=== PATIENT | male | born 1950 | race Caucasian/White ===

== ENCOUNTER 2018-11-07 06:53 | Inpatient (IN) | payer OTHER ==
[~2018-11-07] VITALS: Ht 170.2 cm; Wt 108.9 kg
[2018-11-07] VITALS (9 sets, daily range): BP systolic 108–185; BP diastolic 61–86
[2018-11-07] MEDS ORDERED: ASPIR 8181 MG PO (07:16)
[2018-11-07] MEDS ORDERED: IRON325 PO (07:16)
[2018-11-07] MEDS ORDERED: FISH OIL 1,001000 M2 PO (07:16)
[2018-11-07] MEDS ORDERED: LIPITOR 20 MG T20 M1 PO (07:17)
[2018-11-07] MEDS ORDERED: FIBER THERAPY1368 GM PO (07:17)
[2018-11-07] MEDS ORDERED: TRICOR145 MG PO (07:18)
[2018-11-07] MEDS ORDERED: HYDROXYZINE HCL25 M2 PO (07:18)
[2018-11-07] MEDS ORDERED: PAXIL10 MG PO (07:18)
[2018-11-07] MEDS ORDERED: NEXIUM40 MG PO (07:18)
[2018-11-07] MEDS ORDERED: ALBUTEROL2.5 MG/31 INH (07:19)
[2018-11-07] MEDS ORDERED: AVAPRO 150 MG150 MG PO (07:19)
[2018-11-07] MEDS ORDERED: SPIRIVA INH (07:19)
[2018-11-07] MEDS ORDERED: CPAP MISCELL (07:20)
[2018-11-07] MEDS ORDERED: PROAIR RESPICL90 MCG INH (07:20)
[2018-11-07 07:32] LABS: HEMATOCRIT 48.7 % (42.0-52.0); HEMOGLOBIN 15.7 gm/dL (14.0-18.0); MCH 29.8 pg (26.0-34.0); MCHC 32.4 g/dL (28.0-37.0); MPV 8.8 fl. (7.2-11.1); NUCLEATED RBCS 0 /100WBC; PLATELET COUNT* 339 thou/uL (150-400); RBC 5.29 mil/uL (4.50-6.00); RDW-CV 14.4 % (10.5-14.5); WBC 18.5 thou/uL (4.0-11.0)
[2018-11-07 07:40] LABS: ANION GAP 5 mmol/L (7-16); BUN 19 mg/dL (7-18); CALCIUM 9.1 mg/dL (8.5-10.1); CHLORIDE 99 mmol/L (98-107); CO2 33 mmol/L (21-32); CREATININE 0.9 mg/dL (0.6-1.3); GLUCOSE 123 mg/dL (70-99); INR 1.1; PROTIME 11.5 Seconds (9.20-11.50); SODIUM 137 mmol/L (136-145)
[2018-11-07 07:50] LABS: ALKALINE PHOSPHATASE 50 U/L (46-116); LIPASE 58 U/L (73-393); MAGNESIUM 1.3 mg/dL (1.8-2.4); NT-PRO BRAIN NAT PEPTIDE 357 pg/mL (<300); SGOT 8 U/L (15-37); SGPT 22 U/L (30-65); TOTAL BILIRUBIN 0.7 mg/dL (<0.1-1.0); TOTAL PROTEIN 7.4 g/dL (6.4-8.2); TROPONIN-I LEVEL <0.06 ng/mL (<0.06)
[2018-11-07 08:37] LABS: ABSOLUTE MONOCYTES 0.6 thou/uL (0.0-1.2); ABSOLUTE NEUTROPHILS 15.9 thou/uL (1.6-8.1)
[2018-11-07 08:38] LABS: PLATELET ESTIMATE ADEQUATE
--- NOTE | 2018-11-07 08:50 | NUR ---
ADMIT NOTE - PT ARRIVED TO 2EPPING VIA CART AT THIS TIME. V/S STABLE. FAMILY AT BEDSIDE. DR. LEE AND HERE TO SPEAK WITH PT AND FAMILY ([id number]). PT TAKEN TO PACU FOR EMERGENT SURGERY AT 0952. PT TO BE TRANSFERRED TO ICU AFTER SURGERY. ADMIT NOT COMPLETE D/T INSUFFICENT TIME TO ASK/ASSESS PT.
[2018-11-07 18:18] LABS: BE 1.5 mmol/L (-2 to +3); PCO2 47.1 mmHg (35.0-45.0); PO2 60.9 mmHg (75.0-100.0)
--- NOTE | 2018-11-07 18:19 | NUR ---
PT CARE ASSUMED AFTER TRANSFER FROM [facility] AFTER PERF BOWEL REPAIR. COLOSTOMY TO LLQ. ROSALIO DRAIN TO RLQ. PROVENA WOUND VAC TO MIDLINE INCISION. DRESSING C/D/I. PT WITH HF O2 AT 6L AND NC O2 AT 5L UPON ARRIVAL FROM SURGERY. PT DECREASED TO THE 6L HF NC AND BEGAN DESATTING INTO THE UPPER 70'S LOW 80'S. RESP THERAPY NOTIFIED. PULMONARY PAGED. DR WHIPPLE NOTIFIED OF PT STATUS. ORDERS RECEIVED INCLUDING BIPAP SETTINGS. RESP THERAPY PLACING BIPAP NOW. PT NOW SATTING 99%. PRN PAIN MEDICATION GIVEN PER PT REQUEST. CRITICLE O2 SAT ON ABG OF 88 %. DR WHIPPLE NOTIFIED.
[2018-11-08] VITALS (17 sets, daily range): BP systolic 111–139; BP diastolic 56–71
[2018-11-08 04:28] LABS: ABSOLUTE LYMPHOCYTES 0.5 thou/uL (0.8-5.3); ABSOLUTE MONOCYTES 0.6 thou/uL (0.0-1.2); ABSOLUTE NEUTROPHILS 11.9 thou/uL (1.6-8.1); BASOPHILS 0.1 %; HEMATOCRIT 40.6 % (42.0-52.0); LYMPHOCYTES 3.7 %; MCH 30.6 pg (26.0-34.0); MCHC 32.7 g/dL (28.0-37.0); MCV 93.6 fL (80.0-100.0); MONOCYTES 4.3 %; MPV 8.9 fl. (7.2-11.1); NUCLEATED RBCS 0 /100WBC; POLYS 91.9 %; RBC 4.34 mil/uL (4.50-6.00); RDW-CV 14.7 % (10.5-14.5)
[2018-11-08 04:38] LABS: ALBUMIN 2.2 g/dL (3.4-5.0); CALCIUM 7.8 mg/dL (8.5-10.1); MAGNESIUM 1.8 mg/dL (1.8-2.4); POTASSIUM 4.3 mmol/L (3.5-5.1); TOTAL BILIRUBIN 0.3 mg/dL (<0.1-1.0); TOTAL PROTEIN 6.1 g/dL (6.4-8.2)
[2018-11-08 04:50] LABS: HEMOGLOBIN 13.3 gm/dL (14.0-18.0); PLATELET COUNT* 247 thou/uL (150-400)
[2018-11-08 05:34] LABS: BE -1.9 mmol/L (-2 to +3); PCO2 41.5 mmHg (35.0-45.0); pH 7.367 (7.340-7.450)
[2018-11-08 05:41] LABS: PO2 279.1 mmHg (75.0-100.0)
--- NOTE | 2018-11-08 06:20 | NUR ---
REPORT RECEIVED FROM OFF GOING SHIFT AND CARE ASSUMMED. PT AAOX4, RESP REG AND UNALBORED PT ON BIPAP SETTINGS 14/8, R16, FIO2 80%. PT TOLERATING WELL. ROSALIO DRAIN TO RLQ INTACT AND DRAINING BLOODY DRAINAGE. COLOSTOMY TO LLQ INTACT AND DRAINING BLOODY SECRETIONS. PROVENA WOUND VAC INTACT TO MIDLINE INCISION. ANTOINE INTACT AND PATNET DRAINING ELMA URINE TO BEDSIDE BAG. MONITOR INTACT WITH ALARMS SET. PT HAD A GOOD NIGHT, NO ACUTE CHANGES NOTED DURING SHIFT. CRITICAL ABG PO2 279, PROVIDER NOTIFIED AND NEW ORDER RECEIVED. O2 3L BNC PLACED ON PT. WILL CONTINUE OT MONITOR
--- NOTE | 2018-11-08 07:18 | CON ---
[address] [address] CONSULTATION Name: PREMA MARTIN Room: [address] IN M.R.#: [id number] Admission: 11/07/18 Attend Phys: Prema Way MD Discharge: Date of : 46 Report #: [id number] THIS REPORT FOR: //name// CC: Marnie Medina DO Prema Way DATE OF SERVICE: 11/07/2018 REQUESTING PHYSICIAN: Prema Way MD REASON FOR CONSULTATION: History of chronic obstructive pulmonary disease, sleep apnea and awaited surgery. DISCUSSION: The patient is a 68-year-old man who has a history of underlying COPD. Severity unknown though I suspect it is moderate to severe. He has not been steroid or O2 dependent. He presented to the Emergency Department here at [facility] early this morning. He was having more trouble with his breathing, but also increased abdominal discomfort. O2 saturations were low. He was evaluated in the ED. He was fairly uncomfortable. He was found to have free air. Surgery has been consulted. He was transferred up to telemetry. He was transferred up here, Surgery has seen him. He has also been having increased difficulty with his breathing. Plans are now underway for him to be transferred to the Intensive Care Unit as well as emergent surgery plan for this morning due to of acute abdomen. He quit smoking about 8 years ago. However, he smokes 3 packs of cigarettes per day for over 40 years. He states it has been years since he has had PFTs done. Has seen a wound care specialist, so he cannot tell me who, but was scheduled to follow up in January. Over the last several days, he was having more cough, shortness of breath. He was having some green sputum. At home, he does do Spiriva daily as well as nebulizer treatments with albuterol. He is not on steroids. He does have sleep apnea, he sleeps with CPAP nightly. He was hospitalized for several days in June with a COPD exacerbation that was in [place]. He has never been intubated. He has no prior history of heart disease or thromboembolic disease that he is aware of. PAST MEDICAL HISTORY: Remarkable with COPD and obstructive sleep apnea as noted. REVIEW OF SYSTEMS: ROS was done. No positives as above. Not having vomiting. He complains of constipation. He had taken some medications at home without success. Green sputum. He has been having periods of diaphoresis. Does better breathing when he is able to sit up more, have the head [place] [address] CONSULTATION Name: PREMA MARTIN Room: [address] IN [facility].#: [id number] Admission: 11/07/18 Attend Phys: Prema Way MD Discharge: Date of : 46 Report #: [id number] Denies any vomiting or loss of consciousness. No actual chest pain. No problems with swelling in his lower extremities. PHYSICAL EXAMINATION: GENERAL: The patient is seen in his room just prior to transfer downstairs. Family is at the bedside. His O2 running via nasal cannula. He is able to speak in full sentences, but lengths are short. He is tachypneic. HEENT: Head is normocephalic. Sclerae nonicteric. Mucous membranes are little dry. NECK: Full. HEART: Tones are distant. He is tachycardic. No S3 is heard. LUNGS: Clear breath sounds are markedly diminished. Prolonged expiratory phase. ABDOMEN: Distended, somewhat firm, given his discomfort not easily palpated. EXTREMITIES: No lower extremity edema. SKIN: Warm, but is noted. He is mildly diaphoretic. NEUROLOGIC: He is alert and oriented x 3. LABORATORY AND X-RAY FINDINGS: Arterial blood gases are pending. White blood cell count 18,500, hemoglobin 15.7, hematocrit 48.7 and platelets are normal. Does have a left shift. Chemistry, BUN is 19, creatinine 0.9, bicarbonate 33 and potassium 4.0. Magnesium 1.3, lipase 58, AST 8, magnesium 1.3 and albumin 3.0. IMPRESSION: 1. Chronic obstructive pulmonary disease, baseline probably has moderate to severe chronic obstructive pulmonary disease. Former smoker. Will certainly be at higher risk for perioperative complications. Fortunately, he is no longer a smoker. 2. Obstructive sleep apnea. By history, he has been compliant with the CPAP. 3. Intraabdominal free air. Rule out perforated viscus. Does appear to have an acute abdomen. 4. Obesity. 5. Leukocytosis. 6. Overall appears quite ill. RECOMMENDATIONS: 1. Agree with plans to transfer to ICU pending surgery. 2. Anticipate will need postop ventilatory support. Depending on the findings at the time of surgery, may certainly have a bearing on, quickly he could be weaned. I did discuss with the patient and family. It is not clear how easily he may or may not be weaned. 3. We will continue bronchodilator therapy. Continue scheduled treatments. [address] [address] CONSULTATION Name: PREMA MARTIN Jadon Room: [address] IN M.R.#: [id number] Admission: 11/07/18 Attend Phys: Prema Way MD Discharge: Date of : 46 Report #: [id number] 4. Agree with antibiotics empirically at this time. May have also a component of bronchitis. <ELECTRONICALLY SIGNED> By: Ama Block MD 11/08/18 0718 0936 [id number] Block MD /nt
--- NOTE | 2018-11-08 12:03 | NUR ---
PATIENT IS NOW TELE STATUS
--- NOTE | 2018-11-08 12:50 | NUR ---
PATIENT GOT UP TO CHAIR WITH ONE ASSIST. TOLERATED WELL. SITTING UP IN RECLINER AT THIS TIME. MINIMAL PAIN.
--- NOTE | 2018-11-08 16:04 | NUR ---
REPORT GIVEN TO ALFREDO HENRY. ALL QUESTIONS ANSWERED. BELONGINGS PACKED AND PATIENT AWARE OF TRANSFER. WILL GO BY WHEELCHAIR TO ROOM 228 WITH NURSING STAFF.
--- NOTE | 2018-11-08 20:00 | NUR ---
RECEIVED REPORT AND ASSUMED CARE OF PT, ASSESSMENT COMPLETED. MIDLINE INCISION INTACT WITH WOUND VAC FUNCTIONING. COLOSTOMY NOTED, NO STOOL, SM AMT OF OLD DRAINAGE. O2 ON AT 3L/HFC, NO SOB NOTED. TELEMETRY ON SHOWING SR. WILL CONT TO MONITOR AND ASSIST NEEDED.
[2018-11-09] VITALS: BP 125/61
[2018-11-09 04:00] VITALS: BP 152/85
[2018-11-09 05:06] LABS: HEMATOCRIT 39.5 % (42.0-52.0); MCH 30.7 pg (26.0-34.0); MCHC 32.8 g/dL (28.0-37.0); MCV 93.5 fL (80.0-100.0); MPV 8.5 fl. (7.2-11.1); RBC 4.23 mil/uL (4.50-6.00); RDW-CV 14.7 % (10.5-14.5); WBC 13.1 thou/uL (4.0-11.0)
[2018-11-09 05:20] LABS: CALCIUM 7.7 mg/dL (8.5-10.1); CREATININE 0.8 mg/dL (0.6-1.3); MAGNESIUM 2.2 mg/dL (1.8-2.4); POTASSIUM 3.9 mmol/L (3.5-5.1)
--- NOTE | 2018-11-09 06:30 | NUR ---
SLEPT WELL TONIGHT. TURNING SELF IN BED FOR COMFORT. ROUTINE TORADOL GIVEN AND IV PAIN MED X1 AND EFFECTIVE. ASSESSMENT UNCHANGED. VOIDING WITHOUT DIFFICULTY. TELEMETRY SHOWING SR. HS GOALS OF REST AND SAFETY ACHIEVED. HOURLY ROUNDING OBSERVED.
--- NOTE | 2018-11-09 11:18 | NUR ---
Nutrition: Consult for wound on midline incision. Has wound VAC. RD ordered Naman bid. Pt is on Full liquids. RX: statin, fish oil. Labs: BG 129-148, alb 2.2, prealb 12.9. Wt: 234#. H/o COPD, HILDA, CPAP. GOALS: Naman bid, >75% of meals with good protein intake, tight BG control. Mild risk.
[2018-11-09 12:00] VITALS: BP 158/93
--- NOTE | 2018-11-09 12:00 | NUR ---
MET WITH PT TO DISCUSS HOME SITUATION/DC PLANNING. PT LIVES WITH ON [address] IN [place]. HE IS NORMALLY INDEPENDENT AND ACTIVE. HAS COPD AND IS LIMITED IN HER OWN CARES, NOT ABLE TO ASSIST PT AT DC. FAMILY IS SUPPORTIVE AND CHECKING ON WHILE PT HOSPITALIZED. PT USES CPAP AND NEB, ALSO HAS BACK STIMULAR. HE IS S/P SURGERY AND HAS PREVENA VAC AND NEW OSTOMY. STILL PAINFUL. PT PLANS TO RETURN HOME AT DC. TALKED WITH HIM ABOUT HH AND OSTOMY CARE. EXPLAINED THAT OSTOMY NURSE WILL SEE PRIOR TO DC FOR EDUCATION AND DISCUSS EQUIPMENT. PT AGREEABLE. ALSO DISCUSSED DPOA, PT WOULD LIKE TO DO WHILE HERE BUT NOT TODAY. WILL FOLLOW
--- NOTE | 2018-11-09 14:31 | EKG ---
[place] [address] ELECTROCARDIOGRAM REPORT Name: PREMA MARTIN Room: [address] ADM IN M.R.#: [id number] Admission: 11/07/18 Attend Phys: Prema Way MD Discharge: Date of : 46 Report #: [id number] THIS REPORT FOR: //name// [facility] ED Test Date: 2018-11-07 Test Time: 06:59:41 Pat Name: PREMA MARTIN Department: Room: [facility] Gender: M Biomed Tech: MS : 1950 Requested By: Lars Pickering Order Number: [id number] MD: Patrick Osorio Measurements Intervals Schlater Rate: 117 P: 76 SC: 154 QRS: 55 QRSD: 76 T: 54 QT: 310 QTc: 433 Interpretive Statements Sinus tachycardia Baseline wander in lead(s) I,III,aVR,aVL,aVF No previous ECG available for comparison Electronically Signed On 11-09-2018 14:31:32 CDT by Patrick Osorio [email or web address] <ELECTRONICALLY SIGNED> By: Patrick Osorio MD, [facility] 11/09/18 1431 0659 0659 Patrick Osorio MD, [facility] /EPI
[2018-11-09 16:00] VITALS: BP 128/79
--- NOTE | 2018-11-09 18:00 | NUR ---
ASSUMED PT CARE AT 0700, PT A&O X4, UP WITH STANDBY AND WALKER, VSS, O2 AT 3LPM, CANNON CREWMEMBER TRACING SINUS RHYTHM. LS CLEAR TO DIMINISHED, BS HYPOACTIVE X4, ABD DISTENDED BUT SOFT, MIDLINE INCISION COVERED WITH WOUND VAC, ROSALIO DRAIN TO RIGHT LOWER QUAD DRAINING SEROSANGUINOUS FLUID, PT C/O PAIN AT TIMES, PRN PAIN MEDS ON BOARD, PT TOLERATING WELL. COLOSTOMY IN PLACE, STOMA BEEFY RED WITH MODERATE AMOUNT OF SEROSANGUINOUS DRAINAGE IN BAG. HOURLY ROUNDING COMPLETED.
[2018-11-09 19:50] VITALS: BP 161/85
[2018-11-10] VITALS (7 sets, daily range): BP systolic 148–172; BP diastolic 76–97
[2018-11-10 06:49] LABS: HEMATOCRIT 41.7 % (42.0-52.0); HEMOGLOBIN 13.6 gm/dL (14.0-18.0); MCH 30.4 pg (26.0-34.0); MCHC 32.6 g/dL (28.0-37.0); MCV 93.3 fL (80.0-100.0); MPV 7.9 fl. (7.2-11.1); NUCLEATED RBCS 0 /100WBC; PLATELET COUNT* 279 thou/uL (150-400); RBC 4.47 mil/uL (4.50-6.00); RDW-CV 14.6 % (10.5-14.5); WBC 9.1 thou/uL (4.0-11.0)
[2018-11-10 06:59] LABS: CALCIUM 8.1 mg/dL (8.5-10.1); CREATININE 0.8 mg/dL (0.6-1.3); POTASSIUM 3.8 mmol/L (3.5-5.1)
[2018-11-10 07:49] LABS: ABSOLUTE LYMPHOCYTES 3.2 thou/uL (0.8-5.3); ABSOLUTE MONOCYTES 0.3 thou/uL (0.0-1.2); ABSOLUTE NEUTROPHILS 5.6 thou/uL (1.6-8.1); ATYPICAL LYMPHS 6 %
[2018-11-10 07:50] LABS: PLATELET ESTIMATE ADEQUATE
--- NOTE | 2018-11-10 08:56 | NUR ---
VSS. ASSESSMENT COMPLETED CHARTING. PROVIDER NOTIFED RN ABOUT WOUND VAC, RELAYED TO ON COMMING SHIFT. SEE MAR. SEE CHARTING. FALL PRECAUTIONS IN PLACE. HOURLY ROUNDING FOR SAFETY.
--- NOTE | 2018-11-10 14:15 | NUR ---
CONTINUE TO FOLLOW, CHECKING WITH INSURANCE RE: HH OPTIONS AND WILL DISCUSS WITH PT.
--- NOTE | 2018-11-10 18:30 | NUR ---
ASSUMED PT CARE AT 0700, PT A&O X4, VSS, REMAINS ON 3LPM VIA NC, LS COARSE WITH WHEEZING. UP WITH WALKER AND STANDBY ASSIST. PTS INCISION SITE AT WOUND VAC SATURATED, ORDERS TO DC WOUND VAC, CLEAN SITE, APPLY GAUZE AND ABD PADS. PTS ABDOMEN APPEARED TO BE MORE DISTENDED AND FIRM, STOMA NO LONGER BEEFY RED BUT PURPLE. DR HOLLOWAY TEAM NOTIFIED AT 1100, NO NEW ORDERS GIVEN. NEW ORDERS LATER GIVEN FOR CT ABDOMEN AND PELVIS. DRESSING CHANGED X2 DRESSINGS SATURATED WITH SEROSANGUINOUS DRAINAGE. WOUND NURSEFARHEEN ABLE TO GIVE PT AND TEACHING ON OSTOMY CARES. DR HOLLOWAY TEAM AGAIN NOTIFIED OF ABDOMINAL DISTENTION, FIRM TO TOUCH, AND PT STATING HAS A "FULL FEELING". OSTOMY SHOWS SEROSANGUINOUS DRAINAGE AND SMALL, LOOSE BM. DR LEE TO ASSESS PT AND ADVISE ON FURTHER STEPS. PTS VITALS REMAIN STABLE, PRN PAIN MEDS GIVEN DIRECTED. NEW ORDERS GIVEN FOR NPO STATUS AND PREP FOR SURGERY THIS SHIFT. EDUCATION GIVEN TO PATIENT AND FAMILY ON SURGERY, CONSENT SIGNED. HOURLY ROUNDING COMPLETED.
[2018-11-11] VITALS (18 sets, daily range): BP systolic 124–162; BP diastolic 67–89
--- NOTE | 2018-11-11 00:10 | NUR ---
2320 RECIEVED FROM PACU AND POST EXPLOR LAP WITH FASCIAL DEHISCENCE REPAIR AND EVAC OF HEMATOMA.PT ALERT AND ORIENTED,ON NC AT 4LPM,WITH MIDLINE INCSION WITH DRESSING DRY AND INTACT WITH ROSALIO AT NEGATIVE PRESURE WITH SCANTY BLOODY OUTPUT.ALSO WITH COLONOSTOMY WITH NO OUTPUT.PUT ON CPAP AT 6LPM REQUESTED BY PT.
[2018-11-11 04:16] LABS: ABSOLUTE LYMPHOCYTES 0.4 thou/uL (0.8-5.3); ABSOLUTE MONOCYTES 0.2 thou/uL (0.0-1.2); ABSOLUTE NEUTROPHILS 10.1 thou/uL (1.6-8.1); BASOPHILS 0.2 %; HEMOGLOBIN 13.5 gm/dL (14.0-18.0); LYMPHOCYTES 4.2 %; MCH 30.7 pg (26.0-34.0); MCHC 32.9 g/dL (28.0-37.0); MCV 93.5 fL (80.0-100.0); MONOCYTES 2.1 %; MPV 7.8 fl. (7.2-11.1); NUCLEATED RBCS 0 /100WBC; PLATELET COUNT* 291 thou/uL (150-400); POLYS 93.5 %; RBC 4.39 mil/uL (4.50-6.00); RDW-CV 14.2 % (10.5-14.5); WBC 10.7 thou/uL (4.0-11.0)
[2018-11-11 04:34] LABS: ALBUMIN 2.2 g/dL (3.4-5.0); CALCIUM 8.5 mg/dL (8.5-10.1); CREATININE 0.9 mg/dL (0.6-1.3); TOTAL BILIRUBIN 0.4 mg/dL (<0.1-1.0); TOTAL PROTEIN 6.4 g/dL (6.4-8.2)
[2018-11-11 04:49] LABS: POTASSIUM 5.3 mmol/L (3.5-5.1)
--- NOTE | 2018-11-11 06:43 | NUR ---
NO BLEEDING NOTED,STILL ON CPAP AT 5LPM.CONTINUE MONITORING AND TOWARDS GOAL.FOR POSSIBLE BACK TO TELE.
--- NOTE | 2018-11-11 14:00 | NUR ---
VSS, ASSUMED CARE IN THE AM, ASSESSMENT PERFORMED AND CHARTED, FALL PRECAUTIONS IN PLACE AND CALL LIGHT IN REACH, PT IS A&O4, ON 5L NC AND WEARS CPAP AT HS, PT IS TRACING SR/ST ON THE MONITOR, HAS ANTOINE IN PLACE AND IS DRAING, ALSO J-P DRAING BULB IS IN NEGATIVE PRESSURE WITH RED COLOR DRAINAGE, PT HAS SURGERY CUTS TO HIS MID ABD, IT IS CLOSED AND EDGES ARE APPROXIMATED, NO DRAINAGE AND ABD BINDER IS ON, PT ALSO HAS COLOSTOMY BAG AND STOMA SITE IS PINK AND HEALTHY, PT IS MED/SIRG STATUS BUT WE ARE WAITING FOR SURGERY OK TO MOVE, PT GOAL IS TO SIT UP IN CHAIR, IMPROVE BREATHING. WILL FOLLOW WITH PLAN OF CARE AND HOURLY ROUNDS.
[2018-11-12] VITALS: BP 137/60
[2018-11-12 04:27] VITALS: BP 144/74
--- NOTE | 2018-11-12 07:15 | NUR ---
RECEIVED REPORT AND ASSUMED CARE OF PATIENT AT APPROX 2240 FROM ICU. PATIENT SETTLED AND ORIENTED TO ROOM AND CALL LIGHT. PATIENT RECEIVED PAIN MEDICATION X1 WITH RELIEF. EDUCATED PATIENT ON TRANSITIONING TO ORAL PAIN MEDICATION. PATIENT AGREEABLE. MIDLINE ABDOMINAL INCISION DRESSING CHANGED THIS AM DUE TO DRIED DRAINAGE. ABDOMINAL BINDER IN PLACE. ROSALIO DRAIN TO LLQ WITH SANGUINOUS OUTPUT. ANTOINE IN PLACE BUT TO BE REMOVED THIS AM PER ORDERS. PATIENT REQUESTING TO GET OOB, OK WITH SURGERY FOR HIM TO GET UP WITH ASSIST X1 TO WALK AROUND IN ROOM AND SIT IN CHAIR. CALL LIGHT WITHIN REACH
[2018-11-12 07:30] VITALS: BP 164/96
[2018-11-12 08:22] LABS: ABSOLUTE EOSINOPHILS 0.1 thou/uL (0.0-0.7); ABSOLUTE LYMPHOCYTES 2.2 thou/uL (0.8-5.3); BASOPHILS 0.1 %; HEMATOCRIT 36.8 % (42.0-52.0); HEMOGLOBIN 12.1 gm/dL (14.0-18.0); LYMPHOCYTES 21.4 %; MCH 30.6 pg (26.0-34.0); MCHC 32.9 g/dL (28.0-37.0); MONOCYTES 9.9 %; MPV 8.5 fl. (7.2-11.1); NUCLEATED RBCS 0 /100WBC; PLATELET COUNT* 270 thou/uL (150-400); POLYS 67.6 %; RBC 3.95 mil/uL (4.50-6.00); RDW-CV 14.3 % (10.5-14.5); WBC 10.3 thou/uL (4.0-11.0)
[2018-11-12 08:24] LABS: CALCIUM 8.4 mg/dL (8.5-10.1); CREATININE 0.8 mg/dL (0.6-1.3); POTASSIUM 4.7 mmol/L (3.5-5.1)
[2018-11-12 12:19] VITALS: BP 153/67
--- NOTE | 2018-11-12 12:42 | NUR ---
CONTINUE TO FOLLOW, MET WITH PT. STATES FEELING IMPROVED TODAY. UPDATED ON HH, HEALTHBACK TO FOLLOW AFTER DC. UPDATED FARHEEN/WOUND NURSE THAT PT BACK ON TELE FROM ICU. WILL FOLLOW
--- NOTE | 2018-11-12 15:05 | PATH ---
[address] [address] PATHOLOGY RPT PROCEDURE Name: PREMA MARTIN Room: [facility]- ADM IN M.R.#: [id number] Admission: 11/07/18 Date of : 46 Discharge: Report #: [id number] Path Case #: [id number] L[facility] Accession Number: [id number] . 01 Material submitted: . PART A: colon - SIGMOID COLON PART B: hernia - OLD UMBILICAL HERNIA MESH . 01 Clinical history: . Perforated viscus . 02 Diagnosis: A. Colon, sigmoid, segmental resection: - Segment of colon with multiple diverticula with focal perforation and associated acute abscess. - Viable mucosa present at proximal and distal margins of excision. - Three pericolonic lymph nodes with no significant histopathologic diagnosis. . B. Soft tissue, "old umbilical hernia mesh", removal: - Portion of fibroadipose tissue with focal acute and chronic inflammation. . (MAXIMO:marian; 11/11/2018) MBSilvia/11/11/2018 . 02 Electronically signed: . Darryl Lyons MD, Pathologist NPI- [id number] . 01 Gross description: . A. The specimen is received in formalin, labeled "Prema Martin sigmoid colon". Received is an unoriented segment of colon measuring 19.3 cm in length by 3.0 cm in diameter. Both margins are stapled closed. The serosal surface is pink-lane to pink-grady in appearance with a slight amount of overlying a day. The attached pericolic fat measures up to 8.3 cm in thickness and also displays a slight amount of overlying exudate on the epiploic appendices. The specimen is opened along the antimesenteric line to reveal light lane to pink-grady mucosa with normal mucosal folding. Multiple diverticula are present. A diverticulum shows an area of perforation into the attached fat, as well as an abscess cavity measuring 1.8 x 1.0 x 1.2 cm. Sectioning through the attached pericolic fat reveals three readily identifiable lymph nodes ranging in size from 0.3 to 0.6 cm in maximum dimensions. The specimen is submitted representatively as follows: . A1-A2 both margins A3-A4 [place] [address] PATHOLOGY RPT PROCEDURE Name: PREMA MARTIN Room: [address] IN ..#: [id number] Admission: 11/07/18 Date of : 46 Discharge: Report #: [id number] Path Case #: [id number] A5 sales representative livestock section of abscess cavity A6-A8 sales representative livestock sections of diverticula A9 intact lymph nodes. . B. The specimen is received in formalin, labeled "Prema Martin, old umbilical hernia mesh". Received is a segment of pale lane mesh with adherent yellow-lane to pink-grady soft tissue measuring 6.5 x 5.5 x 1.0 cm in greatest dimensions. Industrial Sewer sections of soft tissue are submitted in cassette B1. Gross photographs are taken. (CAA; 11/10/2018) . QAC/QAC . 02 Pathologist provided ICD-10: K57.30, M79.89 . 02 CPT . 131611, 998653 Specimen Comment: A courtesy copy of this report has been sent to Specimen Comment: [phone], , . Specimen Comment: Report sent to ,DR DUPONT / DR OSORIO Performed at: 01 [facility] [address] [id number] MD Jose Weinberg MD Phone: [phone] Performed at: 02 [facility] [address] [id number] MD Bebeto Espinosa MD Phone: [phone]
[2018-11-12 20:00] VITALS: BP 153/74
[2018-11-13 00:25] VITALS: BP 144/71
[2018-11-13 04:00] VITALS: BP 163/84
[2018-11-13 05:22] LABS: ABSOLUTE EOSINOPHILS 0.2 thou/uL (0.0-0.7); ABSOLUTE LYMPHOCYTES 1.9 thou/uL (0.8-5.3); ABSOLUTE MONOCYTES 0.9 thou/uL (0.0-1.2); BASOPHILS 0.1 %; EOSINOPHILS 2.5 %; HEMOGLOBIN 13.1 gm/dL (14.0-18.0); LYMPHOCYTES 20.9 %; MCH 30.3 pg (26.0-34.0); MCHC 32.8 g/dL (28.0-37.0); MCV 92.5 fL (80.0-100.0); MONOCYTES 10.4 %; MPV 8.1 fl. (7.2-11.1); NUCLEATED RBCS 0 /100WBC; PLATELET COUNT* 258 thou/uL (150-400); POLYS 66.1 %; RBC 4.32 mil/uL (4.50-6.00); WBC 9.1 thou/uL (4.0-11.0)
[2018-11-13 05:40] LABS: CALCIUM 9.1 mg/dL (8.5-10.1); CREATININE 0.8 mg/dL (0.6-1.3); MAGNESIUM 1.6 mg/dL (1.8-2.4); POTASSIUM 4.2 mmol/L (3.5-5.1)
--- NOTE | 2018-11-13 06:58 | NUR ---
ASSUMED PT CARE AT 1930. ASSESSMENT COMPLETED CHARTED. ABLE TO MAKE NEEDS KNOWN. NO C/O PAIN OR DISCOMFORT. UP WITH SBA, USING URINAL THROUGHOUT THE NIGHT. IV ABT RUNNING PER P.O. ROSALIO DRAIN DRAINING A SMALL AMOUNT OF SANGUINOUS FLUID. COLOSTOMY BAG HAD A MODERATE AMOUNT OF LIQUID STOOL AND EDUCATED PT ON EMPTYING BAG. PT RESTING IN BED AT THIS TIME. WILL CONTINUE TO MONITOR.
[2018-11-13 08:15] VITALS: BP 142/77
--- NOTE | 2018-11-13 12:53 | NUR ---
PATIENT CHANGED TO MED SURG STATUS.
--- NOTE | 2018-11-13 13:43 | NUR ---
CONTINUE TO FOLLOW. PT STATES FEELING IMPROVED AND WAS ABLE TO EAT TODAY. HOPES TO GO HOME OVER THE WEEKEND, MAY NEED O2. HAVE ARRANGED FOR [facility] NEED CALLED AND [facility]DERS [facility]. PT HAS CPAP AND WALKER. WOUND CARE HAS STARTED OSTOMY TEACHING, PT HAS SOME SUPPLIES AT BEDSIDE ALSO. [phone] FAX [phone]
[2018-11-13 15:43] VITALS: BP 123/68
--- NOTE | 2018-11-13 17:29 | NUR ---
PATIENT PROGRESSING WELL TOWARDS GOALS. UP TO WALK AROUND THE UNIT MULTIPLE TIMES TODAY AND TOLERATED WELL. ABDOMINAL BINDER REMAINS IN PLACE. EDUCATED PATIENT ON HOW TO EMPTY HIS COSTOMY ON HIS OWN AND BURP IT. ROSALIO REMAINS IN PLACE. NO PAIN AT THIS TIME. OFF MONITOR AND ANTIBITOICS CHANGED TO PO. PATIENT VERY INDEPENDENT AT THIS TIME. BED IN LOWEST POSTION, CALL LIGHT IN REACH/
[2018-11-13 20:00] VITALS: BP 123/49
[2018-11-14] VITALS: BP 147/62
--- NOTE | 2018-11-14 06:00 | NUR ---
ASSUMED PT CARE AT 1930. ASSESSMENT COMPLETED CHARTED. ABLE TO MAKE NEEDS KNOWN. PRN PAIN MEDICATION GAVE X1 FOR BACK AND ABDOMINAL PAIN. UP AD KAMILA. PT RESTING IN BED AT THIS TIME. USES URINAL AT NIGHT AND HAS CPAP ON AT NIGHT. NO C/O PAIN OR DISCOMFORT NOW. WILL CONTINUE TO MONITOR.
[2018-11-14 08:00] VITALS: BP 137/71
--- NOTE | 2018-11-14 10:18 | NUR ---
REPORT RECEIVED FROM CARL CAICEDO. PATIENT TRANSFERRED TO ROOM 111 VIA WHEELCHAIR FROM TELEMETRY. AGREE WITH PREVIOUS ASSESSMENT. PATIENT'S ABDOMINAL BINDER IN PLACE, ROSALIO DRAIN PATENT. COLOSTOMY NOTED, STOMA BEEFY RED AND MOIST. SALINE LOCK NOTED TO RIGHT FOREARM. PATIENT'S O2 IN PLACE AT 4L/NC. PATIENT ORIENTED TO NEW ROOM AND SURROUNDINGS. PATIENT'S CALL LIGHT WITHIN REACH. WILL CONTINUE WITH PLAN OF CARE.
[2018-11-14 16:30] VITALS: BP 139/78
--- NOTE | 2018-11-14 19:31 | NUR ---
PATIENT HAS BEEN A/O X 4 SINCE TRANSFERRING FROM TELEMETRY. PATIENT UP AD KAMILA IN ROOM. O2 IN PLACE AT 4L/NC. ROSALIO DRAIN TEACHING COMPLETED. PATIENT EMPYTING COLOSTOMY. PATIENT ANTICIPATING DC ON FRIDAY. TOLERATING DIET. HOURLY ROUNDING COMPLETED. CALL LIGHT WITHIN REACH. WILL CONTINUE WITH PLAN OF CARE.
[2018-11-14 20:30] VITALS: BP 139/67
[2018-11-15 08:00] VITALS: BP 147/71; BP 148/62
[2018-11-15] MEDS ORDERED: MUCINEX600 MG PO (08:47)
--- NOTE | 2018-11-15 11:59 | NUR ---
[facility] notified of patient's discharge. information requested was faxed. they will work on authorization tomorrow and see the patient. [facility] notified of patient's need for o2. information requested was faxed to [facility]. they are to give a call back within 4 hours of an eta after patient approved for their services. explained we would need the o2 today for discharge. lisa cuevas updated on plan.
--- NOTE | 2018-11-15 14:33 | NUR ---
PT INSTRUCTED ON CHANGE OF OSTOMY BAG AND EMPTYING. PT DEMONSTRATING WELL. HE VERBALIZES HOW TO CHANGE OSTOMY BAG. WAITING FOR [facility] TO BRING TANK AND SET HIM UP. FAX SENT
[2018-11-15 19:27] VITALS: BP 147/71
--- NOTE | 2018-11-15 19:40 | NUR ---
PT DISCHARGE HOME TODAY. AWAITING [facility] FOR DISCHARGE. PREVIOUSLY EXPLAINED, PT WAS INSTRUCTED ON OSTOMY CHANGE AND HAS SUPPLIES. IS TO PICK PATIENT UP UPON DISCHARGE.
[2018-11-15] MEDS ORDERED: HYDROCODON-ACE1 EAC7 PO (19:50)
--- NOTE | 2018-11-15 21:56 | NUR ---
PATIENT GIVEN DISCHARGE INSTRUCTIONS AND SCRIPTS. VERBALIZED UNDERSTANDING. [facility] DROPPED OFF HIS O2. PATIENT TOOK ALL HIS BELONGINGS. PATIENT WALKED OUT BY NURSING STAFF TAKEN HOME BY HIS DAUGHTER AND .
--- NOTE | 2018-11-16 08:58 | NUR ---
FAXED INFO TO [facility] FOR O2 NEEDS. SHE CONFIRMED THEY PROVIDED O2 TO PT YESTERDAY AT OR. CALL TO [facility] TO CONFIRM ORDERS RECEIVED, STATED THEY DID NOT RECEIVE ORDERS, REFAXED TO [phone]
--- NOTE | 2018-11-23 12:29 | OP ---
[address] [address] OPERATIVE REPORT Name: VERONICAPREMA Room: [address] IN M.R.#: [id number] Admission: 11/07/18 Attend Phys: Prema Way MD Discharge: 11/15/18 Date of : 46 Report #: [id number] THIS REPORT FOR: //name// CC: Marnie Carnes MD DATE OF SERVICE: 11/07/2018 REFERRING PHYSICIANS: Dr. Marnie Medina and Dr. Prema Way. PREOPERATIVE DIAGNOSIS: Perforated viscus. POSTOPERATIVE DIAGNOSIS: Perforated sigmoid colon. PROCEDURE: Emergency exploratory laparotomy with the sigmoid colon resection, John's colostomy, removal of old mesh and placement of a Prevena VAC system. SURGEON: Gigi Quesada DO SEMICONDUCTOR PACKAGE SYMBOL STAMPER: Dr. Chante Macdonald. ANESTHESIA: General endotracheal. ESTIMATED BLOOD LOSS: 50 mL. COMPLICATIONS: None. DESCRIPTION OF PROCEDURE: After obtaining proper consents and discussing risks and complications with the patient including bleeding, infection, injury to other organs, possibility of future surgeries, DVT, PE, prolonged ventilator, VA, hernias, adhesions, bowel obstruction and other usual risk associated with exploratory surgery. The patient was taken to the operating room. He was laid on the supine position, administered general anesthesia. Cortez catheter was then placed. He was then prepped and draped in the usual sterile fashion. A timeout was performed. We confirmed the appropriate patient and procedure. Preoperative antibiotics had been given. SCDs were in place. All necessary equipment was within the operating room. We then made an incision inferior to the umbilicus, this was carried down through the skin into the subcutaneous tissue using electrocautery for hemostasis. Once the fascia was encountered, it was incised along the midline, grasped and elevated with Ember clamps. The peritoneum was then identified and the peritoneum was bluntly opened using a hemostat and I then placed a finger inside the peritoneal cavity and extended the peritoneal incision and the fascial incision for the entire length of the skin incision. Once this was done, we [place] [address] OPERATIVE REPORT Name: PREMA MARTIN Room: [address] IN [facility].#: [id number] Admission: 11/07/18 Attend Phys: Prema Way MD Discharge: 11/15/18 Date of : 46 Report #: [id number] some purulent and fibrinous material in the lower abdomen. I was able to place my hand down into the pelvis and immediately identified a thickened area of sigmoid colon with some abscess around it. At this point, because the patient is somewhat obese and the pericolonic fat was quite full in this area and prior to extending the incision, I felt along with peritoneal cavity and could not identify any mesh from the previous umbilical hernia repair. So, I extended the incision and went around the umbilicus; however, in doing so, I did encounter some mesh that was in the preperitoneal space and encountering the mesh did not appear to be adherent very well first of all, but I was also concerned that the mesh would be contaminated by the fluid within the abdominal cavity, so we planned to remove this umbilical mesh at a later time during the procedure. Next, I placed a Montour retractor and we explored the abdomen. We did identify definite area of perforation and there were epiploic appendages which were quite large, measuring up to about 10 cm in length and width surrounding this and these epiploic appendages were actually keeping the area from being more of a free perforation and there were multiple epiploic appendages that were this size. I then was able to identify the sigmoid colon, it did appear to be adherent to where the patient had a previous left inguinal hernia repair as well. Gently dissected this away and it appeared that this was just again epiploic appendages that were stuck to the area where the mesh from the hernia was the mesh that was extraperitoneal, so I do not believe that it was affected at all by this perforation. Once the sigmoid colon was completely freed, I then identified the distal sigmoid which appeared to be minimally inflamed and I then opened avascular window through the mesentery and then was able to place a contour stapler around the distal rectosigmoid junction and fired the stapler. I then used a LigaSure impact device to sequentially clamp and divide the mesentery freeing up the area where there was perforation. I then dissected along the descending colon and took down the white line of Toldt along the left pericolic gutter to free up the colon more. I then continued the dissection of the mesentery using the LigaSure impact device until I was proximal to the area of perforation and an area of colon, which appeared to be minimally inflamed. I then continued the dissection up to the colon then used a FIGUEROA 80 to divide the colon in this area. There was quite a bit of inflammation in the pelvis, so I felt that it was not safe to perform a reanastomosis. There were also noted to be some abscesses there, which were broken apart and washed out with multiple liters of saline solution. Next, I removed the umbilical mesh by grasping it with a Ember clamp and using electrocautery to remove the mesh from the preperitoneal space, this was then passed off as specimen along with the sigmoid colon. I then prepared the descending colon to be brought out for colostomy, did free up the left colon up to the splenic flexure, but did not have to take down the splenic flexure. We assured there was good blood supply to the descending colon. We then made a small hole in the abdominal wall just lateral to and just above the umbilicus on the left side. I then dissected all the way down to the fascia where a cruciate incision was made. The muscle was split. The peritoneum was then opened. We then brought up the descending colon through the abdominal wall for the colostomy. I then [place] [address] OPERATIVE REPORT Name: PREMA MARTIN Jadon Room: [address] IN ..#: [id number] Admission: 11/07/18 Attend Phys: Prema Way MD Discharge: 11/15/18 Date of : 46 Report #: [id number] abdominal cavity. We placed a 19-Kenyan Jono-Lemus drain. The sponge, needle and instrument counts were checked and were found to be corrected. I then closed the peritoneum and fascia together using a running #1 looped PDS suture. The subcutaneous tissues were closed using 3-0 Vicryl suture. The skin was closed using keenan. We then placed a 20 cm Prevena VAC system over top of the incision. Next, we matured the colostomy by first attaching it to the fascia using 2-0 Prolene suture on a SH needle. I then matured the stoma in the standard Margaret fashion using a 2-0 and 3-0 Vicryl suture. A sterile stoma appliance was then placed. The patient was then awakened in the operating room and transported to the recovery room in stable condition. Again, sponge, needle and instrument counts were all correct at the end of the procedure. <ELECTRONICALLY SIGNED> By: Gigi Quesada DO 11/23/18 1229 1308 1404Aedenilson Quesada DO /nt
--- NOTE | 2018-11-23 12:29 | OP ---
[address] [address] OPERATIVE REPORT Name: VERONICAPREMA Room: [address] IN M.R.#: [id number] Admission: 11/07/18 Attend Phys: Prema Way MD Discharge: 11/15/18 Date of : 46 Report #: [id number] THIS REPORT FOR: //name// CC: Marnie Carnes MD DATE OF SERVICE: 11/10/2018 PREOPERATIVE DIAGNOSIS: Fascial dehiscence after exploratory laparotomy with sigmoid colon resection. POSTOPERATIVE DIAGNOSES: Fascial dehiscence after exploratory laparotomy with sigmoid colon resection and hematoma of the abdominal wall. PROCEDURE: Exploratory laparotomy, repair of fascial dehiscence and evacuation of hematoma. SURGEON: Gigi Quesada DO KEYBOARD OPERATOR: Chante Macdonald DO, PGY1, resident. ANESTHESIA: General endotracheal. ESTIMATED BLOOD LOSS: Less than 50 mL. COMPLICATIONS: None. INDICATIONS FOR PROCEDURE: The patient is a 68-year-old gentleman, who initially presented with free intraperitoneal air on 11/07/2018. He has a medical history of COPD requiring occasional steroids and he had been on steroids just prior to the initial operation. After surgery, he was doing quite well with his midline incision and colostomy and had actually been started on a full liquid diet, but coughed fairly severely and then was noted to have quite a bit of fluid and blood in his Prevena VAC dressing. This was removed and a CT scan was obtained, which showed a fascial dehiscence of the midline incision and he was taken to surgery for the following procedure. DESCRIPTION OF PROCEDURE: After obtaining proper consents and discussing risks and complications with the patient and his family, he was taken to the operating room and laid on the supine position, administered general anesthesia. He was then prepped and draped in the usual sterile fashion. We did remove the ROSALIO drain that had been placed at the initial surgery. We covered his stoma with a sterile dressing and prepped over top of this. Once the patient was prepped and draped in the usual sterile fashion, we then performed [place] [address] OPERATIVE REPORT Name: PREMA MARTIN Room: [address]#: [id number] Admission: 11/07/18 Attend Phys: Prema Way MD Discharge: 11/15/18 Date of : 46 Report #: [id number] the appropriate patient and procedure. He was receiving preoperative antibiotics already. We then used a sterile staple remover to remove the keenan from the patient's skin. I was then able to bluntly open the incision as the incision was only two and half days old. We did use scissors to remove some subcutaneous stitches as well, but immediately underneath the skin, we did identify a small bowel which appeared to be viable and we did open the entire incision and explored and identified the tied sutures from our fascial closure. These were all tied on the patient's left side and appeared that they had completely pulled through the tissue on the right side, the sutures were intact. There was a large hematoma in the right rectus muscle area below the umbilicus. We did evacuate this hematoma and irrigated out as well. We then identified the fascia, which appeared to be quite injured and shredded in the area of the middle portion of the incision. At this time, we explored the entire abdomen again and assured there were no abscesses from the patient's previous surgery, we copiously irrigated. I then identified the fascia on both sides. We did have to dissect the fascia very widely out lateral to the rectus muscle on the patient's right side in order to get to good healthy fascia and in doing so, we created a subcutaneous space between the subcutaneous fat and fascia. This was also done on the left side, but we did not go quite as far out on the left side because the fascia was still intact on that side. I then elected to place retention sutures first, so three retention sutures with 0 PDS suture were placed, wide out lateral to the rectus muscle on both the right and left side. These were left untied at this point. We then closed the peritoneum using a running 2-0 PDS suture. Once the peritoneum was closed, I then closed the fascia using interrupted 0 PDS sutures in a [id number]-yo-nplvx fashion. This was used to close the entire incision. Once the entire fascial incision was closed, we then closed the subcutaneous tissues using 3-0 Vicryl suture. The skin was closed using metallic skin clips. I then tied the retention sutures with Bridges over top of the incision. We then placed a sterile dressing and a new ostomy appliance. The patient was then awakened in the operating room and transported to the Intensive Care Unit in stable, but guarded condition. Sponge, needle and instrument counts were all correct at the end of the procedure. <ELECTRONICALLY SIGNED> By: Gigi Quesada DO 11/23/18 1229 182 2021Aedenilson Quesada DO /nt
== END 2018-11-15 21:59 | disposition home health service (06) | DRG 853 ==
LOC: M.ERS 06:53 → M.2W 08:06 → M.TBA-ER 08:06 → M.2W 09:18 → M.ICU 14:50 → M.2W 11-08 16:34 → M.ICU 11-10 22:39 → M.2W 11-11 22:42 → M.ORTHSURG 11-14 10:06
PROVIDERS: Emergency Medicine Emergency Medical Services; Internal Medicine Pulmonary Disease; Surgery; ADMIT Internal Medicine
PROC: 5A09357 Assistance with Respiratory Ventilation, Less than 24 Consecutive Hours, Continuous Positive Airway Pressure (ICD-10-PCS; principal; 2018-11-07)
PROC: 0DTN0ZZ Resection of Sigmoid Colon, Open Approach (ICD-10-PCS; principal; 2018-11-07)
PROC: 0WPF0JZ Removal of Synthetic Substitute from Abdominal Wall, Open Approach (ICD-10-PCS; principal; 2018-11-07)
PROC: 0D1N0Z4 Bypass Sigmoid Colon to Cutaneous, Open Approach (ICD-10-PCS; principal; 2018-11-07)
PROC: 5A09357 Assistance with Respiratory Ventilation, Less than 24 Consecutive Hours, Continuous Positive Airway Pressure (ICD-10-PCS; 2018-11-08)
PROC: 0WQF0ZZ Repair Abdominal Wall, Open Approach (ICD-10-PCS; 2018-11-10)
PROC: 0K9K0ZZ Drainage of Right Abdomen Muscle, Open Approach (ICD-10-PCS; 2018-11-10)
PROC: 0K9L0ZZ Drainage of Left Abdomen Muscle, Open Approach (ICD-10-PCS; 2018-11-10)
DX: A41.9 Sepsis, unspecified organism (principal); J96.01 Acute respiratory failure with hypoxia; J96.02 Acute respiratory failure with hypercapnia; K57.20 Diverticulitis of large intestine with perforation and abscess without bleeding; J44.1 Chronic obstructive pulmonary disease with (acute) exacerbation; J98.11 Atelectasis; T81.32XA Disruption of internal operation (surgical) wound, not elsewhere classified, initial encounter; K91.870 Postprocedural hematoma of a digestive system organ or structure following a digestive system procedure; R65.20 Severe sepsis without septic shock; G47.33 Obstructive sleep apnea (adult) (pediatric); D72.829 Elevated white blood cell count, unspecified; K21.9 Gastro-esophageal reflux disease without esophagitis; I10 Essential (primary) hypertension; E78.5 Hyperlipidemia, unspecified; F32.9 Major depressive disorder, single episode, unspecified; F41.9 Anxiety disorder, unspecified; E83.42 Hypomagnesemia; G89.29 Other chronic pain; E66.01 Morbid (severe) obesity due to excess calories; Y83.8 Other surgical procedures as the cause of abnormal reaction of the patient, or of later complication, without mention of misadventure at the time of the procedure; Y83.3 Surgical operation with formation of external stoma as the cause of abnormal reaction of the patient, or of later complication, without mention of misadventure at the time of the procedure; Y92.230 Patient room in hospital as the place of occurrence of the external cause; Z79.899 Other long term (current) drug therapy; Z79.82 Long term (current) use of aspirin; Z87.891 Personal history of nicotine dependence; Z68.37 Body mass index [BMI] 37.0-37.9, adult; Z99.81 Dependence on supplemental oxygen; Z79.52 Long term (current) use of systemic steroids

== ENCOUNTER 2018-12-18 10:10 | Emergency (ER) | payer OTHER ==
[~2018-12-18] VITALS: Ht 172.7 cm; Wt 99.8 kg
[~2018-12-18 10:10] MED LIST: ALBUTEROL2.5 MG/31 INH; ASPIR 8181 MG PO; AVAPRO 150 MG150 MG PO; CPAP MISCELL; FIBER THERAPY1368 GM PO; FISH OIL 1,001000 M2 PO; HYDROCODON-ACE1 EAC7 PO; HYDROXYZINE HCL25 M2 PO; IRON325 PO; LIPITOR 20 MG T20 M1 PO; MUCINEX600 MG PO; NEXIUM40 MG PO; PAXIL10 MG PO; PROAIR RESPICL90 MCG INH; SPIRIVA INH; TRICOR145 MG PO
[2018-12-18] MEDS ORDERED: PROBIOTIC1 EAC1 PO (10:21)
[2018-12-18] MEDS ORDERED: MEDROLDOSEPACK PO (12:15)
[2018-12-18] MEDS ORDERED: PERCOCET PO (12:15)
[2018-12-18 12:26] VITALS: BP 135/80
== END 2018-12-18 12:28 | disposition home or self-care (01) ==
LOC: M.ERS 10:10
DX: M51.86 Other intervertebral disc disorders, lumbar region (principal); M54.5 Low back pain; G89.29 Other chronic pain; J44.9 Chronic obstructive pulmonary disease, unspecified; G47.33 Obstructive sleep apnea (adult) (pediatric); I10 Essential (primary) hypertension; E66.9 Obesity, unspecified; E78.5 Hyperlipidemia, unspecified; Z68.33 Body mass index [BMI] 33.0-33.9, adult

== ENCOUNTER → 2018-12-22 | Outpatient (CLI) | payer OTHER ==
[~2018-12-22] MED LIST changes: +MEDROLDOSEPACK PO; +PERCOCET PO; +PROBIOTIC1 EAC1 PO
== END ==
LOC: M.PUL 09:09
DX: J44.9 Chronic obstructive pulmonary disease, unspecified (principal)

== ENCOUNTER → 2019-04-08 | Outpatient (CLI) | payer OTHER ==
[~2019-04-08] MED LIST changes: +INCRUSE ELLI62.5 MCG INH; +SYMBICORT160 MCG/4. INH
[2019-04-08 07:17] LABS: CREATININE 0.9 mg/dL (0.6-1.3)
== END ==
LOC: M.CT 04-07 12:31 → M.LAB 06:49 → M.CT 08:00
PROVIDERS: Surgery
DX: K57.20 Diverticulitis of large intestine with perforation and abscess without bleeding (principal); I35.8 Other nonrheumatic aortic valve disorders; M51.36 Other intervertebral disc degeneration, lumbar region; M43.16 Spondylolisthesis, lumbar region; M43.27 Fusion of spine, lumbosacral region

== ENCOUNTER 2019-05-03 05:54 | Inpatient (IN) | payer OTHER ==
[~2019-05-03] VITALS: Ht 172.7 cm; Wt 107.7 kg
--- NOTE | ~2019-05-03 | H ---
[address] [address] HISTORY AND PHYSICAL Name: PREMA MARTIN Room: [address] IN .R.#: [id number] Admission: 05/03/19 Attend Phys: Gigi Quesada DO Discharge: 05/06/19 Date of : 46 Report #: [id number] THIS REPORT FOR: //name// Please refer to the History and Physical performed in the physician's office. By: 0642Medical Records Staff LUISITO /JERAMY
[~2019-05-03 05:54] MED LIST changes: -INCRUSE ELLI62.5 MCG INH; -SYMBICORT160 MCG/4. INH
[2019-05-03] MEDS ORDERED: SYMBICORT160 MCG/4. INH (06:15)
[2019-05-03] MEDS ORDERED: INCRUSE ELLI62.5 MCG INH (06:17)
[2019-05-03 06:30] VITALS: BP 91/69
[2019-05-03 06:30] LABS: HEMATOCRIT 43.6 % (42.0-52.0); HEMOGLOBIN 14.5 gm/dL (14.0-18.0); MCH 29.6 pg (26.0-34.0); MCHC 33.2 g/dL (28.0-37.0); MCV 89.2 fL (80.0-100.0); MPV 8.9 fl. (7.2-11.1); RBC 4.88 mil/uL (4.50-6.00); RDW-CV 14.6 % (10.5-14.5); WBC 7.5 thou/uL (4.0-11.0)
[2019-05-03 06:59] LABS: ALBUMIN 4.1 g/dL (3.4-5.0); CREATININE 1.4 mg/dL (0.6-1.3); POTASSIUM 3.8 mmol/L (3.5-5.1); TOTAL BILIRUBIN 0.8 mg/dL (<0.1-1.0)
--- NOTE | 2019-05-03 10:56 | EKG ---
[place] [address] ELECTROCARDIOGRAM REPORT Name: PREMA MARTIN Room: [place] [address] ADM IN R.#: [id number] Admission: 05/03/19 Attend Phys: Gigi Quesada DO Discharge: Date of : 46 Report #: [id number] THIS REPORT FOR: //name// [facility] Test Date: 2019-05-03 Test Time: 06:50:15 Pat Name: PREMA MARTIN Department: Room: [place] [address] Gender: M Plant Machinist: RT : 1950 Requested By: Gigi Quesada Order Number: [id number] Reading MD: Jose Goyal Measurements Intervals [place] Rate: 82 P: 80 AR: 170 QRS: 67 QRSD: 79 T: 68 QT: 383 QTc: 448 Interpretive Statements Sinus rhythm Minimal ST elevation, inferior leads Baseline wander in lead(s) V3 Compared to ECG 11/07/2018 06:59:41 ST (T wave) deviation now present Sinus tachycardia no longer present Electronically Signed On 05-03-2019 10:56:34 CHIP FRIER by Jose Goyal [email or web address] <ELECTRONICALLY SIGNED> By: Jose Goyal MD, [facility] 05/03/19 1056 0650 0650 Jose Goyal MD, [facility] /EPI
[2019-05-03 13:10] VITALS: BP 117/59
[2019-05-03 17:00] VITALS: BP 118/63
[2019-05-03 20:00] VITALS: BP 104/62
[2019-05-04] VITALS: BP 116/50
[2019-05-04 04:00] VITALS: BP 98/55
[2019-05-04 05:16] LABS: ABSOLUTE LYMPHOCYTES 0.5 thou/uL (0.8-5.3); ABSOLUTE MONOCYTES 0.6 thou/uL (0.0-1.2); ABSOLUTE NEUTROPHILS 6.1 thou/uL (1.6-8.1); BASOPHILS 0.2 %; HEMATOCRIT 35.5 % (42.0-52.0); LYMPHOCYTES 6.8 %; MCH 30.4 pg (26.0-34.0); MCHC 34.4 g/dL (28.0-37.0); MCV 88.4 fL (80.0-100.0); MONOCYTES 8.9 %; MPV 8.7 fl. (7.2-11.1); NUCLEATED RBCS 0 /100WBC; POLYS 84.1 %; RBC 4.02 mil/uL (4.50-6.00); RDW-CV 14.2 % (10.5-14.5); WBC 7.2 thou/uL (4.0-11.0)
[2019-05-04 05:28] LABS: HEMOGLOBIN 12.2 gm/dL (14.0-18.0); PLATELET COUNT* 195 thou/uL (150-400)
[2019-05-04 05:33] LABS: CALCIUM 8.5 mg/dL (8.5-10.1); CREATININE 0.9 mg/dL (0.6-1.3)
[2019-05-04 08:31] VITALS: BP 128/68
[2019-05-04 12:05] VITALS: BP 119/63
[2019-05-04 15:57] VITALS: BP 125/61
[2019-05-04 20:00] VITALS: BP 106/53
[2019-05-05] VITALS: BP 115/65
[2019-05-05 04:00] VITALS: BP 137/79
[2019-05-05 08:14] LABS: HEMATOCRIT 36.9 % (42.0-52.0); HEMOGLOBIN 12.5 gm/dL (14.0-18.0); MCH 30.1 pg (26.0-34.0); MCHC 33.9 g/dL (28.0-37.0); MCV 88.7 fL (80.0-100.0); MPV 8.2 fl. (7.2-11.1); RBC 4.16 mil/uL (4.50-6.00); RDW-CV 14.7 % (10.5-14.5); WBC 5.3 thou/uL (4.0-11.0)
[2019-05-05 08:25] LABS: CREATININE 0.9 mg/dL (0.6-1.3); POTASSIUM 3.6 mmol/L (3.5-5.1)
[2019-05-05 11:00] VITALS: BP 126/64
--- NOTE | 2019-05-05 15:07 | PATH ---
[address] [address] PATHOLOGY RPT PROCEDURE Name: PREMA MARTIN Room: [facility] IN M.R.#: [id number] Admission: 05/03/19 Date of : 46 Discharge: Report #: [id number] Path Case #: [id number] L[facility] Accession Number: [id number] . 01 Material submitted: . abdomen - OSTOMY SITE AND ANASTOMOTIC RINGS . 01 Clinical history: . Perforated diverticulum of large intestine . 02 Diagnosis: Ostomy site and anastomotic rings: - Benign colostomy including colon and skin with superficial erosion and acute inflammation of skin and with evidence of prior surgery including mural fibrosis and focal foreign body type granulomatous response. - Three separate benign colonic fragments compatible with anastomotic ring tissues. . (MARICRUZ:roldan; 05/05/2019) S 05/05/2019 1105 Local . 02 Electronically signed: . Anish Shukla MD, Pathologist NPI- [id number] . 01 Gross description: . The specimen is received in formalin, labeled "Prema Martin, ostomy site and anastomotic rings". Received is a segment of fat wrapped bowel measuring 3.3 cm in length by up to 2.8 cm in diameter. One margin is stapled closed. The opposite margin displays an excision of pale lane skin measuring 3.2 x 2.3 cm with a centrally located stoma, with exposed lane-brown mucosa, measuring 3.1 x 2.3 cm. Opening the specimen reveals pink-lane mucosa with normal architectural folds. No distinct nodules or lesions are noted grossly. The specimen is submitted representatively in cassette A1. . Also received within the specimen container are three segments of light lane mucosa ranging in size from 1.9 x 1.7 x 1.0 to 2.8 x 1.5 x 0.8 cm in greatest dimensions. Package Dye Stand Loader sections from each segment are submitted in cassette A2. (CAA; 05/04/2019) QAC/QA 05/04/2019 0848 Local . 02 Pathologist provided ICD-10: L98.499, L98.9, L90.5 . 02 CPT . [id number] [place] [address] PATHOLOGY RPT PROCEDURE Name: PREMA MARTIN Room: [address] IN M.R.#: [id number] Admission: 05/03/19 Date of : 46 Discharge: Report #: [id number] Path Case #: [id number] Specimen Comment: A courtesy copy of this report has been sent to [phone], [phone] Specimen Comment: [phone] Specimen Comment: Report sent to and Performed at: [address], [place], [place] [id number] MD Jose Weinberg MD Phone: [phone] Performed at: 02 [facility] [address], [place], [place] [id number] MD Anish Shukla MD Phone: [phone]
[2019-05-05 16:00] VITALS: BP 130/70
[2019-05-05 20:10] VITALS: BP 125/67
[2019-05-06] VITALS: BP 125/60
[2019-05-06 04:00] VITALS: BP 126/72
[2019-05-06 07:00] VITALS: BP 150/74
[2019-05-06 11:54] VITALS: BP 149/76
[2019-05-06 13:41] VITALS: BP 149/76
--- NOTE | 2019-05-10 11:24 | OP ---
[address] [address] OPERATIVE REPORT Name: PREMA MARTIN Room: [address] IN M.R.#: [id number] Admission: 05/03/19 Attend Phys: Gigi Quesada DO Discharge: 05/06/19 Date of : 46 Report #: [id number] THIS REPORT FOR: //name// CC: Gigi Medina DO DATE OF SERVICE: 05/03/2019 PREOPERATIVE DIAGNOSIS: Perforated diverticulitis with history of John's colostomy. POSTOPERATIVE DIAGNOSIS: Perforated diverticulitis with history of John's colostomy plus intraabdominal adhesions. PROCEDURE: Laparoscopic takedown of colostomy with reanastomosis of the sigmoid colon using immunofluorescence imaging and also lysis of adhesions lasting approximately 1 hour. SURGEON: Gigi Quesada DO. COOKER SODA: Dr. Chante Macdonald. ANESTHESIA: General endotracheal. TAP blocks were performed. ESTIMATED BLOOD LOSS: Less than 30 mL. COMPLICATIONS: None. DESCRIPTION OF PROCEDURE: After obtaining proper consents and discussing risks and complications with the patient, he was taken to the operating room, laid in the supine position, administered general anesthesia and TAP blocks were performed. We then placed the patient in the lithotomy position, prepped and draped in the usual sterile fashion including placement of a Cortez catheter. We then made a small supraumbilical skin incision with a #11 scalpel blade. This was carried down through the skin into the subcutaneous tissue using electrocautery for hemostasis. Once the fascia was encountered, it was incised along the midline, grasped and elevated with Ember clamps. The peritoneum was then bluntly opened using a hemostat. A finger was placed inside the peritoneal cavity to assure that there were no carmelo-incisional adhesions. Next, 2-0 Vicryl sutures were placed in a pisxcc-sh-dcpcx fashion to secure the Faizan trocar, which was then inserted and insufflation was begun. Once insufflation was complete, full visual inspection of the anterior abdominal organs was performed. This revealed some adhesions along the midline in the lower abdomen. We could visualize the colostomy without any difficulty. There were no other gross abnormalities identified. We then elected to place another 5 [place] [address] OPERATIVE REPORT Name: PREMA MARTIN Room: [address] IN R.#: [id number] Admission: 05/03/19 Attend Phys: Gigi Quesada, DO Discharge: 05/06/19 Date of : 46 Report #: [id number] right lower quadrant and a third trocar in the right upper quadrant. I then began taking down the adhesions. This was done somewhat with blunt dissection, but also using sharp dissection with laparoscopic scissors and electrocautery as well. The adhesions were mostly small bowel that were adhesed down to the rectal stump. I was able to visualize the sutures, which had been placed in the rectal stump and we were able to use these to move the rectal stump around and completely dissect it free as well as free up the small bowel, which was also adherent along the left lower quadrant. Total time for the dissection of adhesions was approximately 1 hour. Once this was all freed, I then turned my attention to the colostomy where I freed the peritoneal attachments of the colostomy using electrocautery as well as sharp dissection with laparoscopic francine. Once this was complete, I then stopped the insufflation. We then made a circular incision in the skin around the colostomy. We then dissected this out and brought it all the way up into and through the wound. Once the entire colon was free, we then chose an area for resection of the colostomy. I then sharply divided the colostomy and sent that off for specimen. We then used 4 Allis clamps to hold open the descending colon and used EEA sizers. We were able to place a 31 mm EEA sizer without any difficulty, so we elected to proceed with a 31 mm EEA. This was then inserted into the colon. I then stapled across the distal end with a TA 60 stapler and then brought out the spike through the tenia anteriorly. We then dropped this back into the peritoneal cavity and used an Fadi retractor and then reinsufflated the abdominal cavity. Once this was done, we then bubble tested the rectal stump to assure there was no leak. We then used the EEA sizers up through the rectal stump and again we were able to easily pass a 31 mm EEA. I did free up the descending colon slightly by taking down the white line of Toldt, so there was no tension on the anastomosis. I was easily able to bring the descending colon down to our rectal stump without any tension. We then inserted a 31 mm EEA stapler up through the rectum. The spike was opened anterior to the previously placed staple line. I then attached the anvil to the spike and the EEA was then closed down and fired. Once this was complete, the EEA was removed. We checked the donuts and found that we had 2 good anastomotic rings. We then bubble tested the staple line and found no evidence of leak. I also used immunofluorescence imaging at this point by giving 5 mg of indocyanine green dye intravenously. We then watched as this filled the blood vessels surrounding the colon and there was good flow noted right at the anastomosis both proximally and distally. Once this was done, we then placed a 15-Tamazight Jono-Lemus drain through the 5 mm right lower quadrant trocar site. The trocar was removed. The drain was sutured in place using 2-0 nylon suture. We then removed all the remaining trocars. The fascia of the stoma site was closed using interrupted #1 PDS sutures in a alvdyq-bf-arima fashion. The subcutaneous tissues were then irrigated and closed using 3-0 Vicryl suture and the skin was closed using a 3-0 Vicryl pursestring suture. We then closed the supraumbilical incision fascia using the 2 previously placed 0 Vicryl sutures plus 2 additional 0 Vicryl sutures. All remaining skin incisions were closed using 4-0 [place] [address] OPERATIVE REPORT Name: PREMA MARTIN Room: [address]#: [id number] Admission: 05/03/19 Attend Phys: Gigi Quesada DO Discharge: 05/06/19 Date of : 46 Report #: [id number] subcuticular stitches. Mastisol, Steri-Strips and OpSite were placed. The patient was awakened in the operating room and transported to recovery room in stable condition. <ELECTRONICALLY SIGNED> By: Gigi Quesada DO 05/10/19 1124 1109 1146Aedenilson Quesada DO /savage
== END 2019-05-06 14:11 | disposition home or self-care (01) | DRG 330 ==
LOC: M.ORTHSURG 05:54 → M.TBA 05:54 → M.PRE 06:49 → M.TBA 11:36 → M.ORTHSURG 12:59 → M.PRE 14:06 → M.2W 14:46
PROVIDERS: ADMIT Surgery
PROC: 0DTN4ZZ Resection of Sigmoid Colon, Percutaneous Endoscopic Approach (ICD-10-PCS; principal; 2019-05-03)
PROC: 0DN84ZZ Release Small Intestine, Percutaneous Endoscopic Approach (ICD-10-PCS; principal; 2019-05-03)
PROC: 0D1M4ZP Bypass Descending Colon to Rectum, Percutaneous Endoscopic Approach (ICD-10-PCS; principal; 2019-05-03)
DX: K57.20 Diverticulitis of large intestine with perforation and abscess without bleeding (principal); N17.9 Acute kidney failure, unspecified; J44.9 Chronic obstructive pulmonary disease, unspecified; Z96.619 Presence of unspecified artificial shoulder joint; I10 Essential (primary) hypertension; E78.5 Hyperlipidemia, unspecified; K21.9 Gastro-esophageal reflux disease without esophagitis; G47.33 Obstructive sleep apnea (adult) (pediatric); K66.0 Peritoneal adhesions (postprocedural) (postinfection); Z79.891 Long term (current) use of opiate analgesic; Z93.3 Colostomy status; Z79.899 Other long term (current) drug therapy; Z98.1 Arthrodesis status; Z87.891 Personal history of nicotine dependence

== ENCOUNTER → 2019-12-03 | Day surgery (SDC) | payer OTHER ==
[~2019-12-03] MED LIST changes: +COZAAR 50 MG TA50 MG PO; +INCRUSE ELLI62.5 MCG INH; +OXYGEN MISCELL; +PAXIL40 MG PO; +PROAIR HFA8.5 GM INH; +ROXICODONE5 M2 PO; +SYMBICORT160 MCG/4. INH
--- NOTE | ~2019-12-03 | OP ---
[address] [address] OPERATIVE REPORT Name: PREMA MARTIN Room: [facility].#: [id number] Admission: 12/03/19 Attend Phys: Gigi Quesada DO Discharge: Date of : 46 Report #: [id number] THIS REPORT FOR: //name// cc: Marnie Medina Ahmad W. DO ~ THIS REPORT FOR: //name// CC: Gigi Medina DO DATE OF SERVICE: 12/03/2019 PREOPERATIVE DIAGNOSES: Bilateral inguinal hernias with the right being recurrent, morbid obesity. POSTOPERATIVE DIAGNOSES: Bilateral inguinal hernias with the right being recurrent, morbid obesity. PROCEDURE: Open bilateral inguinal hernia repairs with 11 x [address] mesh on both sides. SURGEON: Gigi Quesada DO LOOM OPERATOR APPRENTICE: Cale Gipson DO, PGY1, resident. STUDENT: Dr. Chago De La Cruz, MS4 ANESTHESIA: General endotracheal. ESTIMATED BLOOD LOSS: 20 mL. COMPLICATIONS: None. DESCRIPTION OF PROCEDURE: After obtaining proper consents and discussing risks and complications with the patient, he was taken to the operating room, laid in the supine position, administered general endotracheal anesthetic. He was then prepped and draped in the usual sterile fashion. A timeout was performed. We confirmed the appropriate patient and procedure. Preoperative antibiotics had been given. SCDs were in place. We then measured from the ASIS to the pubic tubercle on both sides. A point midway between this was then chosen for an incision and 5 cm lines were drawn along the lines of Mary Beth on both the right and left side. We began on the right side by making an incision along the lines of Mary Beth using a #15 scalpel blade. This was carried down through the skin into the subcutaneous tissue using electrocautery for hemostasis. The patient had quite a large abdominal wall because of his obesity [place] [address] OPERATIVE REPORT Name: PREMA MARTIN Room: [facility].#: [id number] Admission: 12/03/19 Attend Phys: Gigi Quesada DO Discharge: Date of : 46 Report #: [id number] down through quite a bit of subcutaneous fat to finally encounter the external oblique fascia, which was incised along its fibers. It was then grasped and elevated and dissected free from the underlying internal oblique muscle. The internal oblique muscle was then split. The transversalis fascia was identified. Again, this was quite deep and we had to use significantly longer retractors than we usually use in order to get down to the space. I then identified the inferior epigastric vessels, which were retracted medially. The spermatic cord was then brought up into the wound and we checked for an indirect inguinal hernia, which was identified. There was previous repair, but I could not feel any mesh in this area from a previous repair. We did reduce a fairly large cord lipoma, which was excised from the spermatic cord using electrocautery and 0 Vicryl suture was used to ligate it. We then identified a hernia sac, which was dissected free from the cord and reduced back into the peritoneal cavity. I then developed the preperitoneal space using blunt finger dissection to allow for placement of an 11 x [address] mesh. This mesh was placed deep to the pubic ramus by about 2 cm and then opened in its entirety and sutured in place to the transversalis fascia using 0 PDS suture. The internal oblique muscle was then reapproximated also using 0 PDS suture. The external oblique fascia was then closed using running 0 Vicryl suture. Subcutaneous tissues were closed using 3-0 Vicryl suture. Skin was closed using 4-0 Monocryl subcuticular stitches. We then turned our attention to the left side where a similar incision was made, carried down through the skin into the subcutaneous tissue. The external oblique fascia was finally encountered. After going through quite a deep abdominal wall, we then opened the external oblique fascia along its fibers. It was dissected free from the underlying internal oblique muscle and ilioinguinal nerve. The internal oblique muscle was then split and the transversalis fascia was identified. The inferior epigastric vessels were also identified and retracted medially. I then identified a direct inguinal hernia on this side. The hernia was reduced. We checked the spermatic cord for any indirect inguinal hernia with cord lipoma and none was noted. I then developed the preperitoneal space to allow for placement of an 11 x [address] mesh, which was then inserted and sutured in place using 0 PDS suture to the transversalis fascia. The internal oblique muscle was then reapproximated using 0 PDS. The external oblique was closed using a running 0 Vicryl suture. Subcutaneous tissues were closed using 3-0 Vicryl sutures. Skin was closed using 4-0 Monocryl subcuticular stitches. We then injected both sides with 15 mL of 0.5% Marcaine without epinephrine. Dermabond was placed and the patient was then awakened in the operating room and transported to recovery room in stable condition. By: 1225 [id number] Quesada DO /nt
[2019-12-03 09:45] LABS: HEMATOCRIT 41.2 % (42.0-52.0); HEMOGLOBIN 14.2 gm/dL (14.0-18.0); MCH 30.6 pg (26.0-34.0); MCHC 34.3 g/dL (28.0-37.0); MPV 8.3 fl. (7.2-11.1); RBC 4.63 mil/uL (4.50-6.00); RDW-CV 13.8 % (10.5-14.5); WBC 6.5 thou/uL (4.0-11.0)
[2019-12-03 09:54] LABS: CALCIUM 8.8 mg/dL (8.5-10.1); POTASSIUM 3.9 mmol/L (3.5-5.1)
--- NOTE | 2019-12-03 17:24 | EKG ---
[place] [address] ELECTROCARDIOGRAM REPORT Name: PREMA MARTIN Room: [facility]#: [id number] Admission: 12/03/19 Attend Phys: Gigi Quesada DO Discharge: Date of : 46 Date of Service: 12/03/19920 Report #: [id number] THIS REPORT FOR: //name// [facility] Test Date: 2019-12-03 Test Time: 09:21:02 Pat Name: PREMA MARTIN Department: Room: Gender: Community Service Worker: [facility] : 1950 Requested By: Gigi Quesada Order Number: [id number] Reading MD: Jose Goyal Measurements Intervals [place] Rate: 84 P: 69 MN: 160 QRS: 49 QRSD: 85 T: 51 QT: 366 QTc: 433 Interpretive Statements Sinus rhythm Compared to ECG 05/03/2019 06:50:15 no change Electronically Signed On 12-03-2019 17:24:36 CDT by Jose Goyal [email or web address] <ELECTRONICALLY SIGNED> By: Jose Goyal MD, [facility] 12/03/19 1724 0 0 Jose Goyal MD, FACC /EPI
--- NOTE | 2019-12-07 13:08 | PATH ---
[facility] [address] [place] [address] PATHOLOGY RPT PROCEDURE Name: PREMA MARTIN Room: [facility] M.R.#: [id number] Admission: 12/03/19 Date of : 46 Discharge: Report #: [id number] Path Case #: [id number] [facility] Accession Number: [id number] . 01 Material submitted: . hernia - RIGHT CORD LIPOMA. Modifiers: right . 01 Clinical history: . Bilateral recurrent inguinal hernias. . 02 Diagnosis: Right cord lipoma: - Mature fat consistent with "cord lipoma". (MARICRUZ:marian; 12/06/2019) R 12/06/2019 1738 Local . 02 Electronically signed: . Anish Shukla MD, Pathologist NPI- [id number] . 01 Gross description: . Received in formalin labeled "Prema Martin right cord lipoma" is a portion of yellow-lane lobulated fibroadipose tissue measuring 10.5 x 2.8 x 1.7 cm. The external surface is inked black. The specimen is sectioned to reveal yellow-lane homogeneous cut surface without hemorrhage or necrosis. Fixer Supervisor sections are submitted in cassettes A1-A3. ([facility]; 12/05/2019) [facility] 12/05/2019 1029 Local . 02 Pathologist provided ICD-10: D17.6 . 02 CPT . 370587 Specimen Comment: A courtesy copy of this report has been sent to [phone], [phone] Specimen Comment: [phone] Specimen Comment: Report sent to / DR OSORIO Performed at: [address] [facility] [address], [place], [place] [id number] MD Jose Weinberg MD Phone: [phone] Performed at: [address] [facility] [address] [place] [id number] MD Anish Shukla MD Phone: [phone]
== END | disposition home or self-care (01) ==
LOC: M.SUR 09:00
PROVIDERS: ATTEND Surgery
DX: K40.21 Bilateral inguinal hernia, without obstruction or gangrene, recurrent (principal); Z79.899 Other long term (current) drug therapy; Z98.890 Other specified postprocedural states; Z11.59 Encounter for screening for other viral diseases

== ENCOUNTER 2021-05-11 14:22 | Inpatient (IN) | payer OTHER ==
[~2021-05-11] VITALS: Ht 172.7 cm; Wt 104.3 kg
[2021-05-11 14:29] VITALS: BP 110/65
[2021-05-11] MEDS ORDERED: NORTRIPTYLINE H25 M3 PO (14:34)
[2021-05-11] MEDS ORDERED: NAPROXEN SODIU500 MG PO (14:34)
[2021-05-11] MEDS ORDERED: TIZANIDINE HCL4 M1 PO (14:35)
[2021-05-11 14:59] LABS: HEMATOCRIT 44.4 % (42.0-52.0); HEMOGLOBIN 14.6 gm/dL (14.0-18.0); MCH 30.1 pg (26.0-34.0); MCHC 32.9 g/dL (28.0-37.0); MCV 91.6 fL (80.0-100.0); MPV 8.1 fl. (7.2-11.1); NUCLEATED RBCS 0 /100WBC; PLATELET COUNT* 231 thou/uL (150-400); RBC 4.85 mil/uL (4.50-6.00); RDW-CV 13.9 % (10.5-14.5); WBC 28.8 thou/uL (4.0-11.0)
[2021-05-11 15:21] LABS: CALCIUM 8.8 mg/dL (8.5-10.1); CREATININE 1.4 mg/dL (0.6-1.3); POTASSIUM 4.2 mmol/L (3.5-5.1)
[2021-05-11 15:26] LABS: ALBUMIN 3.6 g/dL (3.4-5.0); TOTAL BILIRUBIN 0.8 mg/dL (<0.1-1.0); TOTAL PROTEIN 6.9 g/dL (6.4-8.2)
[2021-05-11 15:58] LABS: ABSOLUTE LYMPHOCYTES 1.4 thou/uL (0.8-5.3); ABSOLUTE MONOCYTES 2.3 thou/uL (0.0-1.2); ABSOLUTE NEUTROPHILS 25.1 thou/uL (1.6-8.1)
[2021-05-11 15:59] LABS: PLATELET ESTIMATE ADEQUATE
[2021-05-11 16:43] LABS: BE -1.8 mmol/L (-2 to +3); PCO2 33.8 mmHg (35.0-45.0); PO2 75.9 mmHg (75.0-100.0); pH 7.427 (7.340-7.450)
[2021-05-11 19:16] LABS: INFLUENZA A ANTIGEN Negative (Negative); INFLUENZA B ANTIGEN Negative (Negative)
[2021-05-11 19:59] VITALS: BP 163/90
[2021-05-12] VITALS (7 sets, daily range): BP systolic 125–159; BP diastolic 60–81
[2021-05-12 03:53] LABS: ABSOLUTE LYMPHOCYTES 0.7 thou/uL (0.8-5.3); ABSOLUTE MONOCYTES 0.6 thou/uL (0.0-1.2); ABSOLUTE NEUTROPHILS 24.1 thou/uL (1.6-8.1); BASOPHILS 0.1 %; HEMATOCRIT 42.4 % (42.0-52.0); HEMOGLOBIN 13.8 gm/dL (14.0-18.0); LYMPHOCYTES 2.6 %; MCH 30.1 pg (26.0-34.0); MCHC 32.5 g/dL (28.0-37.0); MCV 92.6 fL (80.0-100.0); MONOCYTES 2.5 %; MPV 8.1 fl. (7.2-11.1); NUCLEATED RBCS 0 /100WBC; PLATELET COUNT* 205 thou/uL (150-400); POLYS 94.8 %; RBC 4.58 mil/uL (4.50-6.00); RDW-CV 14.2 % (10.5-14.5); WBC 25.4 thou/uL (4.0-11.0)
[2021-05-12 04:08] LABS: CALCIUM 8.3 mg/dL (8.5-10.1); CREATININE 1.1 mg/dL (0.6-1.3); POTASSIUM 4.3 mmol/L (3.5-5.1)
--- NOTE | 2021-05-12 14:37 | EKG ---
[place] [address] ELECTROCARDIOGRAM REPORT Name: PREMA MARTIN Room: [place] [address] ADM IN [facility]#: [id number] Admission: 05/11/21 Attend Phys: Kd Monteiro, Discharge: Date of : 46 Date of Service: 05/11/21 1504 Report #: [id number] THIS REPORT FOR: //name// [facility] ED Test Date: 2021-05-11 Test Time: 15:04:02 Pat Name: PREMA MARTIN Department: Room: [facility] Gender: M Overhead Garage Door Hanger: SILVER : 1950 Requested By: Mario Heath Order Number: [id number] MD: Jose Goyal Measurements Intervals [place] Rate: 112 P: 66 [place]: 156 QRS: 56 QRSD: 83 T: 55 QT: 317 QTc: 433 Interpretive Statements Sinus tachycardia Compared to ECG 12/03/2019 09:21:02 Sinus rhythm no longer present Electronically Signed On 05-12-2021 14:36:59 [employer]ER [employer] by Jose Goyal [email or web address] <ELECTRONICALLY SIGNED> By: Jose Goyal MD, [facility] 05/12/21 1436 1504 1504 Jose Goyal MD, [facility] /EPI
[2021-05-13] VITALS: BP 122/44
[2021-05-13 04:00] VITALS: BP 141/56
[2021-05-13 09:00] VITALS: BP 126/59
[2021-05-13 11:54] VITALS: BP 159/77
[2021-05-13 15:27] LABS: ABSOLUTE LYMPHOCYTES 0.7 thou/uL (0.8-5.3); ABSOLUTE MONOCYTES 0.8 thou/uL (0.0-1.2); BASOPHILS 0.1 %; HEMATOCRIT 39.5 % (42.0-52.0); HEMOGLOBIN 13.2 gm/dL (14.0-18.0); LYMPHOCYTES 3.8 %; MCH 30.6 pg (26.0-34.0); MCHC 33.4 g/dL (28.0-37.0); MCV 91.6 fL (80.0-100.0); MONOCYTES 4.4 %; MPV 8.7 fl. (7.2-11.1); NUCLEATED RBCS 0 /100WBC; PLATELET COUNT* 236 thou/uL (150-400); POLYS 91.7 %; RBC 4.32 mil/uL (4.50-6.00); RDW-CV 14.1 % (10.5-14.5); WBC 17.4 thou/uL (4.0-11.0)
[2021-05-13 15:42] LABS: ALBUMIN 2.7 g/dL (3.4-5.0); CALCIUM 8.5 mg/dL (8.5-10.1); CREATININE 1.3 mg/dL (0.6-1.3); MAGNESIUM 1.7 mg/dL (1.8-2.4); POTASSIUM 4.1 mmol/L (3.5-5.1); TOTAL BILIRUBIN 0.3 mg/dL (<0.1-1.0); TOTAL PROTEIN 6.4 g/dL (6.4-8.2)
[2021-05-13 15:58] VITALS: BP 164/80
[2021-05-14] VITALS: BP 123/84
[2021-05-14 04:00] VITALS: BP 122/74
[2021-05-14 04:41] VITALS: BP 128/74
[2021-05-14 07:45] VITALS: BP 146/85
[2021-05-14 12:23] VITALS: BP 157/80
[2021-05-14] MEDS ORDERED: VITAMIN C1000 MG PO (12:48)
[2021-05-14] MEDS ORDERED: NAC600 MG PO (12:48)
[2021-05-14] MEDS ORDERED: LEVOFLOXACIN750 MG PO (12:48)
[2021-05-14] MEDS ORDERED: VITAMIN D325 MC2 PO (12:48)
[2021-05-14] MEDS ORDERED: PREDNISONE 10 M10 MG PO (12:48)
[2021-05-14 14:21] VITALS: BP 157/80
== END 2021-05-14 15:03 | disposition home or self-care (01) | DRG 177 ==
LOC: M.ERS 14:22 → M.2W 15:46 → M.TBA-ER 15:46 → M.2W 05-12 15:58
PROVIDERS: Family Medicine; Internal Medicine; ADMIT Internal Medicine; ATTEND Internal Medicine
PROC: 5A0935A Assistance with Respiratory Ventilation, Less than 24 Consecutive Hours, High Flow/Velocity Cannula (ICD-10-PCS; principal; 2021-05-12)
DX: J15.6 Pneumonia due to other Gram-negative bacteria (principal); J96.01 Acute respiratory failure with hypoxia; U07.1 COVID-19; J12.82 Pneumonia due to coronavirus disease 2019; J44.0 Chronic obstructive pulmonary disease with (acute) lower respiratory infection; J44.1 Chronic obstructive pulmonary disease with (acute) exacerbation; E78.5 Hyperlipidemia, unspecified; I10 Essential (primary) hypertension; G47.33 Obstructive sleep apnea (adult) (pediatric); F41.9 Anxiety disorder, unspecified; Z93.3 Colostomy status; Z87.891 Personal history of nicotine dependence; Z82.49 Family history of ischemic heart disease and other diseases of the circulatory system